=== PATIENT | male | born 1955 | race African-American/Black ===

== ENCOUNTER 2017-12-17 16:19 | Emergency (ER) | payer OTHER ==
[~2017-12-17] VITALS: Ht 170.2 cm; Wt 73.9 kg
[2017-12-17 16:21] VITALS: BP 110/79
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
[2017-12-17 18:25] VITALS: BP 112/80
== END 2017-12-17 18:25 | disposition home or self-care (01) ==
LOC: MED 16:19
DX: S13.9XXA Sprain of joints and ligaments of unspecified parts of neck, initial encounter (principal); E11.9 Type 2 diabetes mellitus without complications; I10 Essential (primary) hypertension; Z86.73 Personal history of transient ischemic attack (TIA), and cerebral infarction without residual deficits; V43.52XA Car driver injured in collision with other type car in traffic accident, initial encounter; Y93.I9 Activity, other involving external motion; Y92.488 Other paved roadways as the place of occurrence of the external cause; Y99.8 Other external cause status
CPT/HCPCS: 72050; 99284